=== PATIENT | female | born 1950 | race Caucasian/White ===

== ENCOUNTER 2018-07-28 09:09 | Outpatient (CLI) | payer MEDICARE ==
[2018-07-28] MEDS ORDERED: ALPR-475 PO (09:39)
[2018-07-28] MEDS ORDERED: OMEP-110 PO (09:39)
[2018-07-28] MEDS ORDERED: HYDR25TA6 PO (09:39)
[2018-07-28] MEDS ORDERED: METO50TA82 PO (09:39)
[2018-07-28 10:11] LABS: ALBUMIN 4.1 g/dL (3.4-5.0); ANION GAP 8 mmol/L (5-15); CALCIUM 8.9 mg/dL (8.5-10.1); CHLORIDE 103 mmol/L (98-107)
[2018-07-28 10:15] LABS: ALANINE AMINOTRANSFERASE 23 U/L (12-78); ALKALINE PHOSPHATASE 86 U/L (45-117); BILIRUBIN,TOTAL 0.9 mg/dL (0.2-1.0); CREATININE 0.93 mg/dL (0.55-1.02); TOTAL PROTEIN 7.5 g/dL (6.4-8.2)
[2018-08-10] MEDS ORDERED: MIDAZOLAM 1 MG/ML, 2ML ONE (12:45)
[2018-08-10] MEDS ORDERED: FENTANYL PF 250 MCG/5ML ONE (12:45)
== END 2018-08-09 11:24 | disposition home or self-care (01) ==
LOC: STAR 09:09
PROVIDERS: ATTEND Surgery
DX: Z01.818 Encounter for other preprocedural examination (principal); I45.2 Bifascicular block; D48.1 Neoplasm of uncertain behavior of connective and other soft tissue; K80.10 Calculus of gallbladder with chronic cholecystitis without obstruction; Z88.1 Allergy status to other antibiotic agents; Z88.5 Allergy status to narcotic agent; Z91.040 Latex allergy status
CPT/HCPCS: 36415; 80053; 93005; J2250; J3010

== ENCOUNTER 2018-08-10 11:17 | Day surgery (SDC) | payer MEDICARE ==
[~2018-08-10] VITALS: Ht 170.2 cm; Wt 64.1 kg
[~2018-08-10 11:17] MED LIST: ALPR-475 PO; HYDR25TA6 PO; METO50TA82 PO; OMEP-110 PO
[2018-08-10] MEDS ORDERED: LACTATED RINGERS 1,000 ML IV SCH (11:25)
[2018-08-10] MEDS ORDERED: BUPIVACAINE/PF-EPI 0.5% 1:200K ONE (12:17)
[2018-08-10] MEDS ORDERED: ONDANSETRON 2MG/ML, 2ML IVPush ONE (13:00)
[2018-08-10] MEDS ORDERED: SCOPOLAMINE PATCH, 1.5MG PATCH.TD72 TD ONE (13:00)
[2018-08-10] MEDS ORDERED: DIAZEPAM 5 MG TABLET PO ONE (13:00)
[2018-08-10] MEDS ORDERED: ACETAMINOPHEN 500 MG TABLET PO ONE (13:00)
[2018-08-10] MEDS ORDERED: OXYcodone IR 5MG TABLET PO ONE (13:00)
[2018-08-10] MEDS ORDERED: DEXAMETHASONE 4 MG/ML, 1ML ONE (13:04)
[2018-08-10] MEDS ORDERED: ONDANSETRON 2MG/ML, 2ML ONE (13:04)
[2018-08-10] MEDS ORDERED: ROCURONIUM 10 MG/ML,10ML ONE (13:04)
[2018-08-10] MEDS ORDERED: PROPOFOL 10 MG/ML, 20ML ONE (13:04)
[2018-08-10] MEDS ORDERED: CLINDAMYCIN 150 MG/ML, 6ML ONE (13:16)
[2018-08-10] MEDS ORDERED: BUPIVACAINE/PF-EPI 0.5% 1:200K INFIL ONE (13:28)
[2018-08-10] MEDS ORDERED: OXYcodone 5 MG/5 ML ORAL.SOL UDC PO PRN (13:30)
[2018-08-10] MEDS ORDERED: MEPERIDINE/PF 25MG/0.5ML IVPush PRN (13:30)
[2018-08-10] MEDS ORDERED: HYDROmorphone 2 MG/ML, 1ML IVPush PRN (13:30)
[2018-08-10] MEDS ORDERED: FENTANYL PF 100 MCG/2ML IV PRN (13:30)
[2018-08-10] MEDS ORDERED: PROMETHAZINE 12.5 MG SUPP PR PRN (13:30)
[2018-08-10] MEDS ORDERED: ONDANSETRON 2MG/ML, 2ML IV PRN (13:30)
[2018-08-10] MEDS ORDERED: OXYcodone 5 MG/5 ML ORAL.SOL UDC ONE (14:17)
[2018-08-10] MEDS ORDERED: MEPERIDINE/PF 50 MG/ML ONE (14:17)
== END 2018-08-10 18:53 | disposition home or self-care (01) ==
LOC: OUT 11:17
PROVIDERS: ATTEND Surgery
DX: K80.10 Calculus of gallbladder with chronic cholecystitis without obstruction (principal); M79.89 Other specified soft tissue disorders; I10 Essential (primary) hypertension; K21.9 Gastro-esophageal reflux disease without esophagitis; Z88.8 Allergy status to other drugs, medicaments and biological substances; Z88.6 Allergy status to analgesic agent; Z88.1 Allergy status to other antibiotic agents; Z91.040 Latex allergy status; Z90.710 Acquired absence of both cervix and uterus; Z98.890 Other specified postprocedural states; Z72.89 Other problems related to lifestyle; Z87.891 Personal history of nicotine dependence
CPT/HCPCS: 22903; 47562; 88304; 88305; J1100; J2175; J2405; J2704; J7120